=== PATIENT | male | born 1955 | race Caucasian/White ===

== ENCOUNTER → 2016-06-26 | Outpatient (CLI) | payer OTHER ==
[~2016-06-26] MED LIST: CEPH500C PO; CRS20 PO; LEVO25TA34 PO; OXYC1TAB3 PO
[2016-06-26 10:08] LABS: ALT/SGPT 39 U/L (12-78); AST/SGOT 18 U/L (15-37); BLOOD UREA NITROGEN 18 mg/dl (7-18); BUN/CREATININE RATIO 17.9 (10-20); CALCIUM 8.3 mg/dl (8.5-10.1); CARBON DIOXIDE 29 mmol/L (21-32); CHLORIDE 108 mmol/L (98-107); GLUCOSE 95 mg/dl (70-99); POTASSIUM 4.4 mmol/L (3.5-5.1); SODIUM 143 mmol/L (136-145)
[2016-06-26 10:18] LABS: ALKALINE PHOSPHATASE 48 U/L (45-117); CHOLESTEROL 159 mg/dl (0-200); HDL CHOLESTEROL 40 mg/dl; LDL CHOLESTEROL CALCULATED 72 mg/dl; TRIGLYCERIDES 235 mg/dl (0-150); VERY LOW DENSITY LIPOPROT CALC 47 mg/dl
== END | disposition home or self-care (01) ==
LOC: C.LAB1850 08:35
PROVIDERS: ATTEND Internal Medicine
DX: E03.9 Hypothyroidism, unspecified (principal); E78.5 Hyperlipidemia, unspecified

== ENCOUNTER → 2016-06-27 | Outpatient (CLI) | payer OTHER ==
--- NOTE | 2016-06-27 11:39 | DIAGNOSTIC IMAGING REPORT ---
RIGHT KNEE 4 VIEWS INCLUDING BILATERAL STANDING AP VIEWS CLINICAL HISTORY: Right knee pain COMPARISON: May 2013 DISCUSSION: No acute fractures are visualized. There are mild to moderate osteoarthritic changes. There are dorsal patellar spurs. There is medial joint compartment spurring. There is a probable small supra patellar joint effusion. IMPRESSION: 1. Mild to moderate osteoarthritic change. No acute fractures. Electronically signed by: Deny Simms M.D. 06/27/2016 11:38 AM Dictated Date/Time: 06/27/2016 11:36 AM
== END | disposition home or self-care (01) ==
LOC: C.RDSM 11:30
PROVIDERS: ATTEND Physical Medicine & Rehabilitation Sports Medicine
DX: M25.561 Pain in right knee (principal)

== ENCOUNTER → 2016-12-29 | Outpatient (CLI) | payer OTHER | END | disposition home or self-care (01) | LOC: C.RDSM 10:45 | PROVIDERS: ATTEND Physical Medicine & Rehabilitation Sports Medicine | DX: M17.31 Unilateral post-traumatic osteoarthritis, right knee (principal) ==

== ENCOUNTER → 2016-12-29 | Outpatient (CLI) | payer OTHER ==
[2016-12-29 11:10] LABS: CHOLESTEROL/HDL RATIO 3.5
== END | disposition home or self-care (01) ==
LOC: C.LAB1850 09:30
PROVIDERS: ATTEND Internal Medicine
DX: E78.5 Hyperlipidemia, unspecified (principal); Z11.59 Encounter for screening for other viral diseases

== ENCOUNTER → 2017-01-23 | Outpatient (CLI) | payer OTHER | END | disposition home or self-care (01) | LOC: C.PATHSPEC 14:42 | PROVIDERS: ATTEND Physician Assistant | DX: L91.8 Other hypertrophic disorders of the skin (principal) ==

== ENCOUNTER → 2017-06-25 | Outpatient (CLI) | payer OTHER ==
[2017-06-25 09:44] LABS: ALBUMIN 3.4 gm/dl (3.4-5.0); ALT/SGPT 32 U/L (12-78); CHOLESTEROL 166 mg/dl (0-200); GLUCOSE,FASTING 94 mg/dl (70-99)
[2017-06-25 09:56] LABS: ALKALINE PHOSPHATASE 52 U/L (45-117); AST/SGOT 16 U/L (15-37); LDL CHOLESTEROL CALCULATED 75 mg/dl; TOTAL PROTEIN 7.1 gm/dl (6.4-8.2)
== END | disposition home or self-care (01) ==
LOC: C.LAB1850 08:36
PROVIDERS: ATTEND Internal Medicine
DX: E78.5 Hyperlipidemia, unspecified (principal); E03.9 Hypothyroidism, unspecified; Z13.1 Encounter for screening for diabetes mellitus

== ENCOUNTER → 2017-08-24 | Outpatient (CLI) | payer OTHER | END | disposition home or self-care (01) | LOC: C.LAB1850 09:59 | PROVIDERS: ATTEND Internal Medicine | DX: Z87.09 Personal history of other diseases of the respiratory system (principal) ==